=== PATIENT | female | born 1990 | race Hispanic/Latino ===

== ENCOUNTER 2018-08-21 19:37 | Emergency (ER) | payer BC, SELFPAY ==
[2018-08-21] MEDS ORDERED: LEVALBUTEROL 1.25 MG/3 ML NEB ONE ×2 (20:02→20:38)
[2018-08-21] MEDS ORDERED: predniSONE 20 MG TAB ONE (20:03)
--- NOTE | 2018-08-21 20:28 | RAD REPORT ---
EXAM DESCRIPTION: Heidi Padilla (2 Views)08/21/2018 8:21 pm CLINICAL HISTORY: Cough COMPARISON: None FINDINGS: The lungs appear clear of acute infiltrate. The heart is normal size IMPRESSION: No acute abnormalities displayed
[2018-08-21 21:02] LABS: Urine Blood TRACE (NEG); Urine Glucose NEGATIVE (NEG); Urine Protein NEGATIVE (NEG)
--- NOTE | 2018-08-21 21:06 | EDPHYS ---
Physician Documentation [facility] Name: Mila Morris Age: 28 yrs Sex: Female : 1990 Arrival Date: 08/21/2018 Time: 19:39 Bed 24 Private MD: None, None ED Physician Abdoulaye Valencia HPI: 08/21 20:30 This 28 yrs old Female presents to ER via Ambulatory with complaints of pm1 Wheezing and Cough. 20:30 The patient has shortness of breath at rest. Onset: The symptoms/episode began/occurred pm1 yesterday. Duration: The symptoms are continuous, and are steadily getting worse. The patient's shortness of breath is aggravated by nothing, is alleviated by nothing. Associated signs and symptoms: Pertinent positives: non-productive cough, runny nose, wheezing and shortness of breath, sore throat, Pertinent negatives: chest pain, diaphoresis, fever, vomiting. Severity of symptoms: in the emergency department the symptoms are worse. The patient has experienced a previous episode, many years ago, and the symptoms today are exactly the same, took her sister's breathing treatment and it resolved the symptoms. The patient has not recently seen a physician. 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 - Social history:: Smoking status: Patient/guardian denies using tobacco. - Ebola Screening: : No symptoms or risks identified at this time. ROS: 20:30 Constitutional: Negative for fever, chills, and weight loss, Eyes: Negative for injury, pm1 pain, redness, and discharge. 20:30 Neck: Negative for injury, pain, and swelling, Cardiovascular: Negative for chest pain, palpitations, and edema. 20:30 Abdomen/GI: Negative for abdominal pain, nausea, vomiting, diarrhea, and constipation, Back: Negative for injury and pain, : Negative for injury, bleeding, discharge, and swelling, MS/Extremity: Negative for injury and deformity, Skin: Negative for injury, rash, and discoloration, Neuro: Negative for headache, weakness, numbness, tingling, and seizure. 20:30 ENT: Positive for rhinorrhea, sore throat, Negative for ear pain, sinus congestion, sinus pain, dental pain. 20:30 Respiratory: Positive for cough, shortness of breath, wheezing. Exam: 20:30 Constitutional: This is a well developed, well nourished patient who is awake, alert, pm1 and in no acute distress. Head/Face: Normocephalic, atraumatic. Eyes: Pupils equal round and reactive to light, extra-ocular motions intact. Lids and lashes normal. Conjunctiva and sclera are non-icteric and not injected. Cornea within normal limits. Periorbital areas with no swelling, redness, or edema. ENT: Nares patent. No nasal discharge, no septal abnormalities noted. Tympanic membranes are normal and external auditory canals are clear. Oropharynx with no redness, swelling, or masses, exudates, or evidence of obstruction, uvula midline. Mucous membranes moist. Neck: Trachea midline, no thyromegaly or masses palpated, and no cervical lymphadenopathy. Supple, full range of motion without nuchal rigidity, or vertebral point tenderness. No Meningismus. Chest/axilla: Normal chest wall appearance and motion. Nontender with no deformity. No lesions are appreciated. Cardiovascular: Regular rate and rhythm with a normal S1 and S2. No gallops, murmurs, or rubs. Normal PMI, no JVD. No pulse deficits. 20:30 Abdomen/GI: Soft, non-tender, with normal bowel sounds. No distension or tympany. No guarding or rebound. No evidence of tenderness throughout. Back: No spinal tenderness. No costovertebral tenderness. Full range of motion. Skin: Warm, dry with normal turgor. Normal color with no rashes, no lesions, and no evidence of cellulitis. MS/ Extremity: Pulses equal, no cyanosis. Neurovascular intact. Full, normal range of motion. 20:30 Respiratory: the patient does not display signs of respiratory distress, Respirations: normal, Breath sounds: wheezing: that is mild, is heard diffusely. 20:30 Neuro: Orientation: is normal, Motor: is normal, moves all fours. Vital Signs: 19:51 BP 149 / 97; Pulse 106; Resp 20; Temp 99(O); Pulse Ox 97% on R/A; Weight 100.7 kg; tl2 Height 5 ft. 2 in. (157.48 cm); 20:34 Pulse 108; Resp 19; Pulse Ox 100% on R/A; ls4 21:17 BP 138 / 90; Pulse 111; Resp 16; Pulse Ox 99% on R/A; Pain 0/10; ls4 19:51 Body Mass Index 40.60 (100.70 kg, 157.48 cm) tl2 MDM: 19:46 Patient medically screened. pm1 20:55 ED course: Patient feels better post breathing treatments. pm1 21:00 Data reviewed: vital signs. Data interpreted: Pulse oximetry: on room air is 100 %. pm1 Interpretation: normal. Counseling: I had a detailed discussion with the patient and/or guardian regarding: the historical points, exam findings, and any diagnostic results supporting the discharge/admit diagnosis, radiology results, the need for outpatient follow up, to return to the emergency department if symptoms worsen or persist or if there are any questions or concerns that arise at home. 08/21 19:51 Order name: Flu; Complete Time: 20:33 pm1 08/21 19:51 Order name: Strep; Complete Time: 20:18 pm1 08/21 19:51 Order name: Chest Pa And Lat (2 Views) XRAY; Complete Time: 20:33 pm1 08/21 20:16 Order name: Throat Culture [facility] 08/21 20:17 Order name: Urine Dipstick--Ancillary (enter results); Complete Time: 21:05 ar5 08/21 19:52 Order name: Urine Dipstick-Ancillary (obtain specimen); Complete Time: 20:08 pm1 08/21 19:52 Order name: Urine Test (obtain specimen); Complete Time: 20:07 pm1 Administered Medications: 19:58 Drug: predniSONE 60 mg Route: PO; ls4 19:59 Drug: Xopenex 1.25 mg Route: Inhalation; ls4 Disposition: 08/21/18 21:05 Discharged to Home. Impression: Bronchitis, not specified as acute or chronic. - Condition is Stable. - Discharge Instructions: Acute Bronchitis, Adult. - Prescriptions for Prednisone 20 mg Oral Tablet - take 3 tablet by ORAL route once daily for 5 days; 15 tablet. Albuterol Sulfate 90 mcg/actuation - inhale 1-2 puff by INHALATION route every 4-6 hours; 1 Inhaler. - Medication Reconciliation Form, Thank You Letter, Antibiotic Education form. - Follow up: Emergency Department; When: As needed; Reason: Worsening of condition. Follow up: Private Physician; When: 2 - 3 days; Reason: Recheck today's complaints, Continuance of care, Re-evaluation by your physician. - Problem is new. - Symptoms have improved. Addendum: 08/23/2018 21:03 Co-signature as Attending Physician, Abdoulaye Valencia MD Available for consultation at p s1 all times . Signatures: Dispatcher [employer] EDMS Octaviano Cid NP GALLERY MANAGER pm1 Maryana Koch, RN RN tl2 Abdoulaye Valencia MD MD ps1 Ceci Mcnair RN RN ls4 Corrections: (The following items were deleted from the chart) 08/21 21:09 21:05 08/21/2018 21:05 Discharged to Home. Impression: Unspecified asthma. Condition is pm1 Stable. Forms are Medication Reconciliation Form, Thank You Letter, Antibiotic Education, Prescription Opioid Use. Follow up: Emergency Department; When: As needed; Reason: Worsening of condition. Follow up: Private Physician; When: 2 - 3 days; Reason: Recheck today's complaints, Continuance of care, Re-evaluation by your physician. Problem is new. Symptoms have improved. pm1 21:19 21:09 08/21/2018 21:05 Discharged to Home. Impression: Bronchitis, not specified as ls4 acute or chronic. Condition is Stable. Discharge Instructions: Asthma, Adult. Prescriptions for Prednisone 20 mg Oral Tablet - take 3 tablet by ORAL route once daily for 5 days; 15 tablet, Albuterol Sulfate 90 mcg/actuation - inhale 1-2 puff by INHALATION route every 4-6 hours; 1 Inhaler. and Forms are Medication Reconciliation Form, Thank You Letter, Antibiotic Education. Follow up: Emergency Department; When: As needed; Reason: Worsening of condition. Follow up: Private Physician; When: 2 - 3 days; Reason: Recheck today's complaints, Continuance of care, Re-evaluation by your physician. Problem is new. Symptoms have improved. pm1
--- NOTE | 2018-08-21 21:06 | ER ---
Nurse's Notes [facility] Name: Mila Morris Age: 28 yrs Sex: Female : 1990 Arrival Date: 08/21/2018 Time: 19:39 Bed 24 Private MD: None, None Diagnosis: Bronchitis, not specified as acute or chronic Presentation: 08/21 19:49 Presenting complaint: Patient states: cough and breathing difficulty since yesterday tl2 afternoon, usually breathing treatment helps. Woke up this morning with runny nose, cough and wheezing. Denies fever. Transition of care: patient was not received from another setting of care. Onset of symptoms was August 20, 2018. Risk Assessment: Do you want to hurt yourself or someone else? Patient reports no desire to harm self or others. Initial Sepsis Screen: Does the patient meet any 2 criteria? No. Patient's initial sepsis screen is negative. Does the patient have a suspected source of infection? No. Patient's initial sepsis screen is negative. Care prior to arrival: None. 19:49 Method Of Arrival: Ambulatory tl2 19:49 Acuity: SID 3 tl2 Triage Assessment: 19:51 Respiratory: Reports shortness of breath cough that is Onset: The symptoms/episode tl2 began/occurred yesterday, the patient has mild shortness of breath. 20:08 General: Appears in no apparent distress. Behavior is calm, cooperative. Pain: Denies ls4 pain. 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 - Social history:: Smoking status: Patient/guardian denies using tobacco. - Ebola Screening: : No symptoms or risks identified at this time. Screenin:52 Abuse screen: Denies threats or abuse. Nutritional screening: No deficits noted. tl2 Tuberculosis screening: No symptoms or risk factors identified. Fall Risk None identified. Assessment: 19:52 Respiratory: Airway is patent Respiratory effort is even, labored, Breath sounds are tl2 clear bilaterally. 20:09 General: Appears in no apparent distress. uncomfortable, Behavior is calm, cooperative. ls4 Cardiovascular: No deficits noted. Rhythm is regular. Respiratory: Reports cough that is non-productive, since this morning. Musculoskeletal: No deficits noted. 20:59 General: Appears in no apparent distress. uncomfortable. Respiratory: Airway is patent ls4 Respiratory effort is even, unlabored, Respiratory pattern is regular, Breath sounds are clear bilaterally. Vital Signs: 19:51 BP 149 / 97; Pulse 106; Resp 20; Temp 99(O); Pulse Ox 97% on R/A; Weight 100.7 kg; tl2 Height 5 ft. 2 in. (157.48 cm); 20:34 Pulse 108; Resp 19; Pulse Ox 100% on R/A; ls4 21:17 BP 138 / 90; Pulse 111; Resp 16; Pulse Ox 99% on R/A; Pain 0/10; ls4 19:51 Body Mass Index 40.60 (100.70 kg, 157.48 cm) tl2 ED Course: 19:39 Patient arrived in ED. mr 19:41 None, None is Private Physician. mr 19:45 Octaviano Cid, BRIANA is PHCP. pm1 19:45 Abdoulaye Valencia MD is Attending Physician. pm1 19:46 Ceci Mcnair, LUIS DANIEL is Primary Nurse. ls4 19:50 Triage completed. tl2 19:51 Arm band placed on right wrist. tl2 20:08 No provider procedures requiring assistance completed. Patient did not have IV access ls4 during this emergency room visit. 20:09 Patient has correct armband on for positive identification. Placed in gown. Call light ls4 in reach. Side rails up X2. Pulse ox on. NIBP on. 20:19 X-ray completed. Patient tolerated procedure well. la2 20:21 Chest Pa And Lat (2 Views) XRAY In Process Unspecified. EDMS Administered Medications: 19:58 Drug: predniSONE 60 mg Route: PO; ls4 19:59 Drug: Xopenex 1.25 mg Route: Inhalation; ls4 Outcome: 21:05 Discharge ordered by . pm1 21:17 Condition: good ls4 21:17 Discharge instructions given to patient, family, Instructed on discharge instructions, follow up and referral plans. medication usage, safety practices, Demonstrated understanding of instructions, follow-up care, medications, Prescriptions given X 2. 21:18 Discharged to home ambulatory, with family. ls4 21:19 Patient left the ED. ls4 Signatures: Dispatcher [employer] MINERVA VannBhumi gray PalakOctaviano, BRIANA ASBESTOS COVERER [email or web address] Maryana Koch RN RN tl2 Lilian Morales Lisa, RN RN ls4
== END 2018-08-21 21:19 | disposition home or self-care (01) ==
LOC: ER 19:37
DX: J40 Bronchitis, not specified as acute or chronic (principal)
CPT/HCPCS: 71046; 81003; 87070; 87081; 87804; 99284; J7512

== ENCOUNTER 2019-02-17 19:12 | Emergency (ER) | payer BC ==
--- NOTE | 2019-02-17 20:13 | RAD REPORT ---
EXAM DESCRIPTION: CT - Head Brain Wo Cont - 02/17/2019 7:54 pm CLINICAL HISTORY: HEADACHE Headache, drowsiness COMPARISON: <Comparisons> TECHNIQUE: All CT scans are performed using dose optimization technique as appropriate and may inclu de automated exposure control or mA/KV adjustment according to patient size. FINDINGS: No intracranial hemorrhage, hydrocephalus or extra-axial fluid collection.No areas of brai n edema or evidence of midline shift. The paranasal sinuses and mastoids are clear. The calvarium is intact. IMPRESSION: No acute intracranial abnormality.
[2019-02-17 20:17] LABS: Absolute Lymphocytes (CBC) 2.9 K/uL (0.7-4.9); Absolute Monocytes 0.6 K/uL (0.1-1.3); Absolute Neutrophil 4.7 K/uL (1.8-8.0); Basophils % 0.8 % (0-1.3); Eosinophils % 1.8 % (0-4.4); Hematocrit 46.7 % (36.0-45.0); Lymphocytes % 34.1 % (15.3-44.8); MPV 8.7 fL (7.6-11.3); Monocytes % 7.3 % (3.3-12.3); RBC Red Blood Cell Count 5.24 M/uL (3.86-4.86)
[2019-02-17 20:33] LABS: Albumin 3.8 g/dL (3.4-5.0); Bilirubin Direct 0.1 mg/dL (0-0.2); Bilirubin Total 0.5 mg/dL (0.2-1.0); Potassium 3.6 mmol/L (3.5-5.1); Protein, Total 7.9 g/dL (6.4-8.2)
--- NOTE | 2019-02-17 21:03 | EDPHYS ---
Physician Documentation [facility] Name: Mila Morris Age: 28 yrs Sex: Female : 1990 Arrival Date: 02/17/2019 Time: 19:14 Bed 20 Private MD: ED Physician Rajesh Petit HPI: 02/17 20:05 This 28 yrs old Female presents to ER via Ambulatory with complaints of pm1 Headache, Abdominal Pain. 20:05 The patient complains of pain to the all over her head. The patient describes the pm1 headache as aching, constant. Onset: The symptoms/episode began/occurred 3 month(s) ago. Associated signs and symptoms: Pertinent negatives: altered mental status, fever, nausea, neck stiffness, paresthesias, Photophobia vision changes, vision loss, vomiting, weakness, vertigo. Severity of symptoms: in the emergency department the pain is unchanged. Headache History: The patient has had previous headaches and this one is similar to previous episodes. The symptoms are alleviated by nothing. the symptoms are aggravated by nothing. The patient has been recently seen by a physician: the patient's primary care provider, referred to neurologist and has pending appointment. Patient also with abdominal pain that has been ongoing for 1 year. Has been evaluated by her PCP. 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 - Social history:: Smoking status: unknown. - Ebola Screening: : Patient negative for fever greater than or equal to 101.5 degrees Fahrenheit, and additional compatible Ebola Virus Disease symptoms Patient denies exposure to infectious person Patient denies travel to an Ebola-affected area in the 21 days before illness onset No symptoms or risks identified at this time. ROS: 20:05 Constitutional: Negative for fever, chills, and weight loss, Eyes: Negative for injury, pm1 pain, redness, and discharge, ENT: Negative for injury, pain, and discharge, Neck: Negative for injury, pain, and swelling, Cardiovascular: Negative for chest pain, palpitations, and edema, Respiratory: Negative for shortness of breath, cough, wheezing, and pleuritic chest pain. 20:05 Back: Negative for injury and pain, : Negative for injury, bleeding, discharge, and swelling, MS/Extremity: Negative for injury and deformity, Skin: Negative for injury, rash, and discoloration. 20:05 Abdomen/GI: Positive for abdominal pain, of the epigastric area, Negative for nausea, vomiting, and diarrhea. 20:05 Neuro: Positive for headache, Negative for dizziness, numbness, tingling, weakness. Exam: 20:05 Constitutional: This is a well developed, well nourished patient who is awake, alert, pm1 and in no acute distress. Head/Face: Normocephalic, atraumatic. Eyes: Pupils equal round and reactive to light, extra-ocular motions intact. Lids and lashes normal. Conjunctiva and sclera are non-icteric and not injected. Cornea within normal limits. Periorbital areas with no swelling, redness, or edema. ENT: Nares patent. No nasal discharge, no septal abnormalities noted. Tympanic membranes are normal and external auditory canals are clear. Oropharynx with no redness, swelling, or masses, exudates, or evidence of obstruction, uvula midline. Mucous membranes moist. Neck: Trachea midline, no thyromegaly or masses palpated, and no cervical lymphadenopathy. Supple, full range of motion without nuchal rigidity, or vertebral point tenderness. No Meningismus. Chest/axilla: Normal chest wall appearance and motion. Nontender with no deformity. No lesions are appreciated. Cardiovascular: Regular rate and rhythm with a normal S1 and S2. No gallops, murmurs, or rubs. Normal PMI, no JVD. No pulse deficits. Respiratory: Lungs have equal breath sounds bilaterally, clear to auscultation and percussion. No rales, rhonchi or wheezes noted. No increased work of breathing, no retractions or nasal flaring. Abdomen/GI: Soft, non-tender, with normal bowel sounds. No distension or tympany. No guarding or rebound. No evidence of tenderness throughout. Back: No spinal tenderness. No costovertebral tenderness. Full range of motion. Skin: Warm, dry with normal turgor. Normal color with no rashes, no lesions, and no evidence of cellulitis. MS/ Extremity: Pulses equal, no cyanosis. Neurovascular intact. Full, normal range of motion. 20:05 Neuro: Orientation: is normal, Motor: is normal, moves all fours, Sensation: is normal, no obvious gross deficits. Vital Signs: 19:21 BP 141 / 73; Pulse 95; Resp 18; Temp 98.1; Pulse Ox 100% on R/A; Weight 106.59 kg; aj Height 5 ft. 2 in. (157.48 cm); 20:34 BP 129 / 79; Pulse 90; Resp 16; Temp 97.9(TE); Pulse Ox 98% on R/A; Pain 6/10; ed1 21:00 BP 110 / 79; Pulse 84; Resp 19; Temp 97.3(O); Pulse Ox 100% on R/A; Pain 6/10; ed1 19:21 Body Mass Index 42.98 (106.59 kg, 157.48 cm) aj MDM: 19:24 Patient medically screened. pm1 20:42 Data reviewed: vital signs. Data interpreted: Pulse oximetry: on room air is 98 %. pm1 Interpretation: normal. Counseling: I had a detailed discussion with the patient and/or guardian regarding: the historical points, exam findings, and any diagnostic results supporting the discharge/admit diagnosis, lab results, radiology results, the need for outpatient follow up, to return to the emergency department if symptoms worsen or persist or if there are any questions or concerns that arise at home. 02/17 19:41 Order name: Basic Metabolic Panel; Complete Time: 20:37 pm1 02/17 19:41 Order name: CBC with Diff; Complete Time: 20:19 pm1 02/17 19:41 Order name: CT Head Brain wo Cont; Complete Time: 20:19 pm1 02/17 19:41 Order name: Creatinine for Radiology; Complete Time: 20:37 pm1 02/17 19:41 Order name: Hepatic Function; Complete Time: 20:37 pm1 02/17 19:41 Order name: Lipase; Complete Time: 20:37 pm1 02/17 19:41 Order name: IV Saline Lock; Complete Time: 20:19 pm1 02/17 19:41 Order name: Labs collected and sent; Complete Time: 20:19 pm1 02/17 19:41 Order name: Urine Dipstick-Ancillary (obtain specimen) pm1 02/17 19:41 Order name: Urine Test (obtain specimen) pm1 Administered Medications: No medications were administered Disposition: 02/17/19 20:43 Discharged to Home. Impression: Headache, Unspecified abdominal pain. - Condition is Stable. - Discharge Instructions: Abdominal Pain, Adult, General Headache Without Cause, Tension Headache, Adult. - Prescriptions for Fiorinal 50- 325-40 mg Oral Capsule - take 1 capsule by ORAL route every 4 hours As needed - not to exceed 6 capsules per day; 20 capsule. - Medication Reconciliation Form, Thank You Letter, Antibiotic Education, Prescription Opioid Use form. - Follow up: Emergency Department; When: As needed; Reason: Worsening of condition. Follow up: Private Physician; When: 2 - 3 days; Reason: Recheck today's complaints, Continuance of care, Re-evaluation by your physician. - Problem is new. - Symptoms have improved. Addendum: 02/22/2019 16:29 Co-signature as Attending Physician, Rajesh Petit MD I agree with the assessment and t w4 plan of care. Signatures: Dispatcher [employer] EDMS Maggie Baumann RN RN aj Amaris Lin RN RN ed1 Octaviano Cid, POCKET SETTER LOCKSTITCH POCKET SETTER LOCKSTITCH pm1 Rajesh Petit MD MD tw4 Corrections: (The following items were deleted from the chart) 02/17 21:04 20:43 02/17/2019 20:43 Discharged to Home. Impression: Headache; Unspecified abdominal ed1 pain. Condition is Stable. Forms are Medication Reconciliation Form, Thank You Letter, Antibiotic Education, Prescription Opioid Use. Follow up: Emergency Department; When: As needed; Reason: Worsening of condition. Follow up: Private Physician; When: 2 - 3 days; Reason: Recheck today's complaints, Continuance of care, Re-evaluation by your physician. Problem is new. Symptoms have improved. pm1
--- NOTE | 2019-02-17 21:03 | ER ---
Nurse's Notes [facility] [place] Name: Mila Morris Age: 28 yrs Sex: Female : 1990 Arrival Date: 02/17/2019 Time: 19:14 Bed 20 Private MD: Diagnosis: Headache;Unspecified abdominal pain Presentation: 02/17 19:19 Presenting complaint: Patient states: Epigastric pressure and head pressure for more aj than 2 weeks. Seen PCP for this same issue. Transition of care: patient was not received from another setting of care. Onset of symptoms was January 31, 2019. Risk Assessment: Do you want to hurt yourself or someone else? Patient reports no desire to harm self or others. Initial Sepsis Screen: Does the patient meet any 2 criteria? No. Patient's initial sepsis screen is negative. Does the patient have a suspected source of infection? No. Patient's initial sepsis screen is negative. Care prior to arrival: None. 19:19 Method Of Arrival: Ambulatory 19:19 Acuity: SID 3 Triage Assessment: 19:21 Headache History: The patient has had previous headaches and this one is similar to previous episodes. General: Appears in no apparent distress. comfortable, Behavior is calm, cooperative, appropriate for age. Pain: Complains of pain in face and epigastric area. Neuro: Level of Consciousness is awake, alert, obeys commands, Oriented to person, place, time, situation, Appropriate for age. Respiratory: Airway is patent Respiratory effort is even, unlabored, Respiratory pattern is regular, symmetrical. GI: Abdomen is obese, Reports epigastric pain. Derm: Skin is intact, is healthy with good turgor, Skin is pink, warm \T\ dry. normal. 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 - Social history:: Smoking status: unknown. - Ebola Screening: : Patient negative for fever greater than or equal to 101.5 degrees Fahrenheit, and additional compatible Ebola Virus Disease symptoms Patient denies exposure to infectious person Patient denies travel to an Ebola-affected area in the 21 days before illness onset No symptoms or risks identified at this time. Screenin:26 Abuse screen: Denies threats or abuse. Denies injuries from another. Nutritional ed1 screening: No deficits noted. Tuberculosis screening: No symptoms or risk factors identified. Fall Risk None identified. Assessment: 19:26 General: Appears in no apparent distress. Behavior is calm, cooperative. Pain: ed1 Complains of pain in epigastric area and head Pain currently is 6 out of 10 on a pain scale. Quality of pain is described as aching, Pain began 2 weeks ago. Neuro: Level of Consciousness is awake, alert, obeys commands, Oriented to person, place, time, situation, Reports headache in entire frontal area. Cardiovascular: Denies chest pain, Heart tones S1 S2 present. Respiratory: Airway is patent Respiratory effort is even, unlabored, Respiratory pattern is regular, symmetrical, Breath sounds are clear bilaterally. GI: Abdomen is obese, Bowel sounds present X 4 quads. Abd is soft and non tender X 4 quads. Reports upper abdominal pain, Patient currently denies diarrhea, nausea, vomiting. : No signs and/or symptoms were reported regarding the genitourinary system. EENT: Oral mucosa is moist. Derm: Skin is intact, is healthy with good turgor, Skin is dry, Skin is normal, Skin temperature is warm. Musculoskeletal: Circulation, motion, and sensation intact. Range of motion: intact in all extremities. 20:34 Reassessment: Patient appears in no apparent distress at this time. No changes from ed1 previously documented assessment. Patient and/or family updated on plan of care and expected duration. Pain level reassessed. Patient is alert, oriented x 3, equal unlabored respirations, skin warm/dry/pink. Pt is requesting to not have a CT of her abdomen done. Octaviano notified. 21:00 Reassessment: Patient appears in no apparent distress at this time. No changes from ed1 previously documented assessment. Patient and/or family updated on plan of care and expected duration. Pain level reassessed. Patient is alert, oriented x 3, equal unlabored respirations, skin warm/dry/pink. Vital Signs: 19:21 BP 141 / 73; Pulse 95; Resp 18; Temp 98.1; Pulse Ox 100% on R/A; Weight 106.59 kg; aj Height 5 ft. 2 in. (157.48 cm); 20:34 BP 129 / 79; Pulse 90; Resp 16; Temp 97.9(TE); Pulse Ox 98% on R/A; Pain 6/10; ed1 21:00 BP 110 / 79; Pulse 84; Resp 19; Temp 97.3(O); Pulse Ox 100% on R/A; Pain 6/10; ed1 19:21 Body Mass Index 42.98 (106.59 kg, 157.48 cm) ED Course: 19:14 Patient arrived in ED. ag3 19:20 Triage completed. aj 19:21 Arm band placed on left wrist. aj 19:24 Ocatviano Cid NP is PHCP. pm1 19:24 Pramod Flowers MD is Attending Physician. pm1 19:26 Amaris Lin, RN is Primary Nurse. ed1 19:26 Patient has correct armband on for positive identification. Bed in low position. Call ed1 light in reach. Adult w/ patient. Pulse ox on. NIBP on. Warm blanket given. 19:54 CT Head Brain wo Cont In Process Unspecified. EDMS 20:05 Initial lab(s) drawn, by me, sent to lab. Inserted saline lock: 20 gauge in right ed1 antecubital area, using aseptic technique. Blood collected. 20:43 Rajesh Petit MD is Attending Physician. pm1 21:00 No provider procedures requiring assistance completed. IV discontinued, intact, ed1 bleeding controlled, No redness/swelling at site. Pressure dressing applied. Administered Medications: No medications were administered Outcome: 20:43 Discharge ordered by . pm1 21:00 Discharged to home ambulatory, with significant other. ed1 21:00 Condition: good 21:00 Discharge instructions given to patient, Instructed on discharge instructions, follow up and referral plans. medication usage, Demonstrated understanding of instructions, follow-up care, medications, Prescriptions given X 1. 21:04 Patient left the ED. ed1 Signatures: Dispatcher [employer] Maggie Gonzalez RN RN Amaris Lin RN RN ed1 Octaviano Cid, BRIANA RETAIL PLANNING MANAGER pm1 Danae Salinas ag3
== END 2019-02-17 21:04 | disposition home or self-care (01) ==
LOC: ER 19:12
DX: R51 Headache (principal); R10.9 Unspecified abdominal pain
CPT/HCPCS: 36415; 70450; 80048; 80076; 83690; 85025; 99284